=== PATIENT | female | born 1990 | race African-American/Black ===

== ENCOUNTER → 2016-11-25 | Outpatient (CLI) | payer OTHER ==
[~2016-11-25] MED LIST: IBUP200T45; ISOVUE-370 76% 100ML VIAL (Q9967) As Ordered ONE; REFR0.1D; VALA500T2
--- NOTE | 2016-11-26 09:47 | REP ---
Clinical: Infertility. Technique: Real time fluoroscopic evaluation performed in conjunction with the SCANNING MANAGER. Findings: Economic Analyst film of the pelvis is unremarkable. Contrast administration demonstrates normal contour to the uterus and normal bilateral fallopian tubes demonstrating bilateral patency. Incidental note is made of venous intravasation of contrast in the left ovarian vein which quickly washed out. Total fluoroscopic time: 27 seconds. Impression: 1. Bilateral fallopian tubes appear normal and patent. 2. Normal contour to the uterus. Signed by Brody Chappell MD 11/26/2016 09:39 A
== END ==
LOC: M RADPRO 12:15
PROVIDERS: ATTEND Obstetrics & Gynecology
DX: N97.9 Female infertility, unspecified (principal)
CPT/HCPCS: 58340; 74740; Q9967

== ENCOUNTER 2017-01-23 02:15 | Emergency (ER) | payer OTHER ==
[~2017-01-23] VITALS: Ht 167.6 cm; Wt 72.7 kg
[2017-01-23 02:44] VITALS: BP 114/71
[2017-01-23] MEDS ORDERED: IBUP200T45 (02:49)
[2017-01-23] MEDS ORDERED: VALA500T2 (02:49)
[2017-01-23] MEDS ORDERED: REFR0.1D (02:49)
== END 2017-01-23 04:00 | disposition left against medical advice (07) ==
LOC: M ED 02:15
DX: G43.909 Migraine, unspecified, not intractable, without status migrainosus (principal); Z53.21 Procedure and treatment not carried out due to patient leaving prior to being seen by health care provider